=== PATIENT | male | born 1945 | race Caucasian/White ===

== ENCOUNTER → 2018-11-17 | Outpatient (CLI) | payer MEDICARE | END | disposition home or self-care (01) | LOC: RAH 12:20 | PROVIDERS: ATTEND Internal Medicine | DX: M25.571 Pain in right ankle and joints of right foot (principal) | CPT/HCPCS: 73610 ==

== ENCOUNTER → 2019-06-06 | Outpatient (CLI) | payer MEDICARE | END | disposition home or self-care (01) | LOC: RAH 12:59 | PROVIDERS: ATTEND Internal Medicine | DX: I82.411 Acute embolism and thrombosis of right femoral vein (principal); I82.442 Acute embolism and thrombosis of left tibial vein; I82.890 Acute embolism and thrombosis of other specified veins; I82.431 Acute embolism and thrombosis of right popliteal vein | CPT/HCPCS: 93971 ==

== ENCOUNTER → 2019-07-24 | Outpatient (CLI) | payer MEDICARE | END | disposition home or self-care (01) | LOC: RAH 10:43 | PROVIDERS: ATTEND Internal Medicine | DX: I82.441 Acute embolism and thrombosis of right tibial vein (principal) | CPT/HCPCS: 93971 ==

== ENCOUNTER → 2019-10-17 | Outpatient (CLI) | payer MEDICARE | END | disposition home or self-care (01) | LOC: RAH 14:37 | PROVIDERS: ATTEND Internal Medicine | DX: I82.401 Acute embolism and thrombosis of unspecified deep veins of right lower extremity (principal); E11.9 Type 2 diabetes mellitus without complications | CPT/HCPCS: 93971 ==